=== PATIENT | male | born 1990 | race Caucasian/White ===

== ENCOUNTER 2020-09-25 10:49 | Outpatient (CLI) | payer OTHER, SELFPAY ==
--- NOTE | ~2020-09-25 | XR_ITS ---
EXAMINATION: XR knee LT 3V DATE: 09/25/2020 11:18 INDICATION: Left knee pain. TECHNIQUE: 4 views of left knee were obtained. COMPARISON: None. FINDINGS: Bone alignment is normal. No fracture. There is mild tricompartmental osteoarthritis. No kn ee joint effusion. IMPRESSION: 1. Mild left knee osteoarthritis. Reviewed, dictated and finalized at location A.
== END 2020-09-25 10:50 | disposition home or self-care (01) ==
LOC: CHSIMG 10:54
PROVIDERS: PCP Family Medicine; Visit Provider Family Medicine
DX: M25.562 Pain in left knee (principal)
CPT/HCPCS: 73562

== ENCOUNTER 2020-10-01 14:56 | Outpatient (RCR) | payer OTHER, SELFPAY ==
--- NOTE | 2020-10-01 15:54 | PTOPEVAL ---
Thank you for referring Bigg Silva to [facility].? The patient is scheduled to be seen for therapy? __2__x/week for 8 visits. Please review, sign, date and return this plan of care FLORIDALMA. I agree with and certify that the following plan of care is medically necessary. Referring Physician Date Admitting Provider: Attending Provider: Gómez Tate MD Referring Provider: *PT Outpatient Evaluation Start: 10/01/20 15:05 Freq: Status: Active Protocol: Document 10/01/20 15:05 CYNDI (Rec: 10/01/20 15:54 CYNDI [id number]) Therapy Assessment Status Assessment Status Assessment Status Evaluation Evaluation Information Problem Diagnosis left knee pain Onset 09/01/20 Subjective Information Pt. reports that he began Query Text:As Reported By Patient/ noticing knee pain on 09/01/20. Family He recalls no specific injury. Pt. reports that knee pain is located on the front of the left knee and into the back of the left knee. He reports that pain is most noticable with walking and standing. Pt. reports that he has been off work for about 6 days and notices signficant pain reduction. He reports that he does walk majority of the day while at work. He reports that his goal is to decrease his left knee pain. Pain Assessment Timing of Pain Assessment Timing of Pain Assessment Pre-Treatment Pain Scale Pain Scale Used Numeric (1 - 10) Self Report Pain Assessment Left Knee(s) Reported Pain Level 1 Pain Aggravating Factors Walking,Weight Bearing/ Standing Pain Score Pain Score 1: Self Report Interventions Used Interventions Used By Clinicians Exercise Lower Extremity Range of Motion General Lower Extremity Range of Motion Gross Lower Extremity Range of Motion -right knee AROM -3-112 Comments -left knee AROM -3-112 Lower Extremity Muscle Strength Testing General Lower Extremity Strength Gross Lower Extremity Strength -bilateral hip flexion 4/5 -bilateral hip extension 4-/5 -bilateral hip abduciton 4-/5 -bilateral knee flexion 5/5 -bilateral knee extension 5/5 -bilateral ankle dorsiflexion 5/5 Muscle Length Testing Muscle Length Testing
--- NOTE | 2020-11-24 14:49 | PCPTNOTE ---
Mr. Silva attended a total of 4 treatment sessions from 10/01/20 to 10/16/20. He has failed to return to the clinic and has not contacted the clinic regarding his status. He will be discharged from our care. Refer to last daily note for pt. discharge status. Eulalio Long, MPT
== END 2020-10-16 15:31 | disposition home or self-care (01) ==
LOC: CHSPT 14:56
PROVIDERS: PCP Family Medicine; Visit Provider Family Medicine
DX: M25.562 Pain in left knee (principal)
CPT/HCPCS: 97110; 97161

== ENCOUNTER 2021-07-23 16:03 | Outpatient (CLI) | payer OTHER, SELFPAY ==
--- NOTE | ~2021-07-23 | XR_ITS ---
XR foot RT min 3V DATE: 07/23/2021 16:22 INDICATION: Right lateral ankle and foot pain TECHNIQUE: 4 views COMPARISON: None FINDINGS: There is plantar and posterior calcaneal enthesopathy. No recent fracture, dislocation, periosteal reaction or bone destruction. IMPRESSION: Plantar and posterior calcaneal enthesopathy Reviewed, dictated and finalized at location A.
== END 2021-07-23 16:04 | disposition home or self-care (01) ==
LOC: CHSIMG 16:07
PROVIDERS: PCP Family Medicine; Visit Provider Family Medicine
DX: M25.571 Pain in right ankle and joints of right foot (principal)
CPT/HCPCS: 73630